=== PATIENT | female | born 1970 | race Caucasian/White ===

== ENCOUNTER 2016-06-14 02:08 | Inpatient (IN) | payer OTHER ==
[2016-06-14] MEDS ORDERED: Naloxone* 0.4 MG/ML 1 ML VIAL ONE (02:27)
[2016-06-14] MEDS ORDERED: Succinylcholine* 20 MG/ML 10 ML VIAL ONE (02:46)
[2016-06-14 06:03] LABS: Anion Gap 14 mmol/L (2-11); Blood Urea Nitrogen 17 mg/dL (6-24); CO2 Carbon Dioxide 22 mmol/L (22-32); Chloride 103 mmol/L (101-111); Glucose 101 mg/dL (70-100); Potassium 3.5 mmol/L (3.5-5.0); Sodium 139 mmol/L (133-145)
[2016-06-14 06:04] LABS: ALT 16 U/L (7-52); AST 23 U/L (13-39); Albumin 4.4 g/dL (3.2-5.2); Alkaline Phosphatase 73 U/L (34-104); BUN/Creatinine Ratio 17.3 (8-20); Calcium 9.2 mg/dL (8.6-10.3); EGFR African American 78.6 (>60); EGFR Non-African American 61.1 (>60); Globulin 3.7 g/dL (2-4); Total Protein 8.1 g/dL (6.4-8.9)
[2016-06-14 06:05] LABS: Acetaminophen < 15 mcg/mL; Alcohol 108 mg/dL (<10); Salicylate < 2.50 mg/dL (<30)
[2016-06-14 06:32] LABS: Urine Bacteria Absent (Absent); Urine Bilirubin Negative (Negative); Urine Glucose Negative (Negative); Urine Nitrite Negative (Negative)
[2016-06-14] MEDS ORDERED: NS 0.9% 1000 ML* 1,000 ML IV ONE ×2 (06:41→07:48)
[2016-06-14 06:42] LABS: Hematocrit 43 % (35-47); Hemoglobin 14.6 g/dl (12.0-16.0); Mean Corpuscular HGB Conc 34 g/dl (31-36); Mean Corpuscular Hemoglobin 29 pg (27-31); Mean Corpuscular Volume 86 fL (80-97); Mean Platelet Volume 8 um3 (7.4-10.4); Red Blood Count 5.03 10^6/ul (4.0-5.4); Red Cell Distribution Width 13 % (10.5-15); White Blood Count 13.4 10^3/ul (3.5-10.8)
[2016-06-14 06:46] LABS: Benzodiazepine Urine Screen None Detected (None Detect)
[2016-06-14] MEDS ORDERED: Acetaminophen TAB* 325 MG PO PRN (08:12)
[2016-06-14] MEDS ORDERED: Ondansetron INJ* 2 MG/ML VIAL IV PRN (08:12)
--- NOTE | 2016-06-14 08:17 | RAD ---
Indication: Overdose, unresponsive. Single frontal view of the chest performed at 0315 hours was reviewed. No prior study is available for comparison. No mediastinal shift is noted. Heart is of normal size and configuration. Lung graves appear clear. IMPRESSION: NO ACTIVE CARDIOPULMONARY DISEASE IS NOTED.
--- NOTE | 2016-06-14 08:25 | RAD ---
Indication: Overdose, confusion. CT of the brain was performed without IV contrast. Ventricular structures are midline. No midline shift is noted. The extra-axial spaces are unremarkable. There is no evidence of mass or hemorrhage. No other high or low density lesions are identified. Mastoid air cells and paranasal sinuses are otherwise unremarkable. IMPRESSION: No intracranial mass or hemorrhage is noted.
[2016-06-14] MEDS: Enoxaparin(*) 40 MG/0.4 ML SYR SUBCUT SCH (10:40)
[2016-06-14] MEDS: NS 0.9% 1000 ML* 1,000 ML IV SCH ×2 (10:40→20:00)
[2016-06-14] MEDS: DULoxetine DR CAP* 30 MG CAP.DR PO SCH (10:40)
--- NOTE | 2016-06-14 14:33 | HP ---
HISTORY AND PHYSICAL: DATE OF ADMISSION: 06/14/16 PRIMARY CARE PHYSICIAN: The patient's PCP is in [place]. CHIEF COMPLAINT: Overdose. HISTORY OF PRESENT ILLNESS: Ms. Jfefrey is a 46-year-old female with past medical history of depression and shoulder pain, who presents to the hospital after being found down from an overdose. 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 She is staying at the [facility]. She states that last night she went out to dinner and drinks with her colleagues. She may have had 2 or 3 drinks. She states she came back home and said she felt very overwhelmed and that there is "no one ever there." The patient reportedly called her sister and indicated that this may be the last time they talk. She subsequently took multiple pills of Flexeril and Benadryl, she assumes may be 10 of each. The Flexeril prescription had a total of 30 tablets when it was prescribed. The patient's sister called the police and they arrived at the hotel, found her in her room unresponsive. She was tachycardic, breathing rapidly but maintaining saturations. She was brought to the hospital. Due to her altered mental status , the patient was intubated. She then became more awake and combative and was subsequently extubated. When I spoke to the patient now, she has no complaints other than feeling tired. She is frustrated with what she did and is worried about losing her job and "ruining her life." She denies any chest pain, shortness of breath. She states she has never had a suicide attempt in the past. She states she saw psychiatrist few years ago and currently her PCP prescribes her antidepressants. PAST MEDICAL HISTORY: Depression, shoulder pain. PAST SURGICAL HISTORY: Tonsillectomy, left knee meniscus surgery, right ACL repair. HOME MEDICATIONS: 1. Sumatriptan 100 mg by mouth as needed for migraines. 2. Sertraline 25 mg taken daily, only 10 days a month. 3. Duloxetine 30 mg by mouth daily. 4. Flexeril 10 mg by mouth as needed for shoulder pain. ALLERGIES: The patient reports no known drug allergies. FAMILY HISTORY: Significant for her mother with alcohol abuse, kidney disease, liver disease, COPD. Father with CAD. Sister is relatively healthy. SOCIAL HISTORY: The patient denies any history of tobacco abuse. She states she rarely drinks, will occasionally drink when she is out with colleagues usually up to 2 to 3 drinks. Denies any illicit drug use. REVIEW OF SYSTEMS: A 12-point review of systems was negative except for that noted in the HPI. PHYSICAL EXAMINATION GENERAL: The patient is a middle-aged female, appears to be in mild emotional distress. VITAL SIGNS: On admission, temperature 98.4, heart rate of 107, respiratory rate of 13, O2 saturation 100% on room air, blood pressure 158/108. HEENT: Pupils are equal, round, and reactive to light and accommodation. Some mild pupil dilatation. Anicteric sclerae. Moist mucous membranes. LUNGS: Clear to auscultation bilaterally. No wheezes, rales, or rhonchi. CARDIOVASCULAR: Regular rate and rhythm. S1 and S2 present. No murmurs, gallops, or rubs. ABDOMEN: Obese, soft, nontender, nondistended. Bowel sounds positive. EXTREMITIES: No cyanosis, clubbing, or edema. NEUROLOGIC: The patient is alert and oriented x3. No focal neurological deficits. DIAGNOSTIC STUDIES/LAB DATA: White blood cell count of 13, hematocrit of 43, platelets of 322. Sodium of 139, potassium 3.5, chloride of 103, carbon dioxide 22, BUN of 17, creatinine 0.98, glucose of 101. INR of 0.88. LFTs within normal limits. UA benign for infection. U-tox is negative. Alcohol is 108. EKG shows sinus tachycardia. CT of the brain shows no intracranial mass or hemorrhage. Chest x-ray shows no active cardiopulmonary disease. ASSESSMENT AND PLAN: Attempted overdose with Flexeril, Benadryl combined with alcohol in a 46-year-old female with past medical history of depression and shoulder pain. 1. Overdose. The patient is currently awake and oriented. She regrets her decision to do this. She is still fairly tachycardic. As computers were down overnight, it is unclear how much fluid she got. She has had at least 1 L. We will order another liter of bolus now and continue at 125 cc an hour. We will hold Flexeril for now. Spoken to Dr. Ramirez, I feel she will likely be cleared for the psych floors later today who will come and evaluate. We will continue with one-to- one on the floor for now. Tachycardia is likely result of the Benadryl overdose. Should hopefully resolve later today. 2. Depression. We will continue the patient's home duloxetine for now, holding sertraline. 3. Shoulder pain. I will write the patient for some Tylenol. 4. DVT prophylaxis. Lovenox subcu. 5. Code status. The patient is a full code. TIME SPENT: Total time spent on this admission 50 minutes, with over half that time spent [id number] with the patient in counselling and coordinating care. [id number]/CPS #: [id number] MTDD
[2016-06-15] MEDS: NS 0.9% 1000 ML* 1,000 ML IV SCH ×2 (03:17→12:13)
[2016-06-15 05:42] LABS: Hematocrit 33 % (35-47); Hemoglobin 11.4 g/dl (12.0-16.0); Mean Corpuscular HGB Conc 35 g/dl (31-36); Mean Corpuscular Hemoglobin 29 pg (27-31); Mean Corpuscular Volume 85 fL (80-97); Mean Platelet Volume 8 um3 (7.4-10.4); Red Cell Distribution Width 13 % (10.5-15); White Blood Count 9.1 10^3/ul (3.5-10.8)
[2016-06-15] MEDS: DULoxetine DR CAP* 30 MG CAP.DR PO SCH (08:25)
[2016-06-15] MEDS: Enoxaparin(*) 40 MG/0.4 ML SYR SUBCUT SCH (08:25)
--- NOTE | 2016-06-15 12:56 | PN ---
Subjective Date of Service: 06/15/16 Interval History: Ms. Jeffrey reports feeling better this morning and denies any fever/chills, CP, SOB, abd pain, n/v, palpitations. She reports that she is urinating regularly. She feels as if her "mood is better" and she is happy to have visitors. She is requesting to go home; she does understand that due to her overdose, she will require psychiatric evaluation prior to discharge and that there is a possibility of admission to mental health. She feels as if she will go home with her family. 1:1 observation continues, no other nursing concerns. Family History: Unchanged from Admission Social History: Unchanged from Admission Past Medical History: Unchanged from Admission Objective Active Medications: Acetaminophen (Tylenol Tab*) 650 mg PO Q4H PRN PRN Reason: PAIN Duloxetine HCl (Cymbalta Cap*) 30 mg PO DAILY [facility] Last Admin: 06/15/16 08:25 Dose: 30 mg Enoxaparin Sodium (Lovenox(*)) 40 mg SUBCUT Q24H [facility] Last Admin: 06/15/16 08:25 Dose: 40 mg Sodium Chloride (Ns 0.9% 1000 Ml*) 1,000 mls @ 125 mls/hr IV PER RATE [facility] Last Admin: 06/15/16 12:13 Dose: 125 mls/hr Ondansetron HCl (Zofran Inj*) 4 mg IV Q4H PRN PRN Reason: NAUSEA/VOMITING Vital Signs 06/14/16 06/14/16 06/15/16 16:25 20:45 00:18 Temperature 98.7 F 98.9 F Pulse Rate 112 104 108 Respiratory 16 22 16 Rate Blood Pressure 129/82 133/73 122/61 (mmHg) O2 Sat by Pulse 97 96 96 Oximetry 06/15/16 06/15/16 06/15/16 04:27 07:23 11:41 Temperature 98.8 F 99.2 F 98.6 F Pulse Rate 102 101 104 Respiratory 16 20 20 Rate Blood Pressure 121/77 124/79 124/71 (mmHg) O2 Sat by Pulse 97 97 96 Oximetry Oxygen Devices in Use Now: None Appearance: Female patient, lying in bed, in NAD Eyes: PERRLA Ears/Nose/Mouth/Throat: Clear Oropharnyx, Mucous Membranes Moist Respiratory: Symmetrical Chest Expansion and Respiratory Effort, Clear to Auscultation Cardiovascular: NL Sounds; No Murmurs; No JVD, RRR - apical 100 Abdominal: NL Sounds; No Tenderness; No Distention Extremities: No Edema, No Clubbing, Cyanosis Skin: No Rash or Ulcers, No Nodules or Sclerosis Neurological: Alert and Oriented x 3, NL Muscle Strength and Tone Lines/Tubes/Other Access: Clean, Dry and Intact Peripheral IV Nutrition: Taking PO's Result Diagrams: 06/15/16 05:14 06/14/16 02:41 Assess/Plan/Problems-Billing Assessment: Ms. Jeffrey is a 46 year old female with a PMH of depression who presented to the ED after an intentional overdose and apparent suicide attempt. - Patient Problems (1) Overdose Code(s): T50.901A - POISONING BY UNSP DRUG/MEDS/BIOL SUBST, ACCIDENTAL, INIT Comment: Patient made suicide attempt by combining ETOH with cyclobenzaprine and Benadryl. Patient previously tachycardic, now improved. VSS. Anticholinergic side effects resolved, Poison Control has signed off. Psych eval pending. (2) Depression Code(s): F32.9 - MAJOR DEPRESSIVE DISORDER, SINGLE EPISODE, UNSPECIFIED Comment: Continue duloxetine. Sertraline currently on hold. Psych eval pending. (3) Shoulder pain Code(s): M25.519 - PAIN IN UNSPECIFIED SHOULDER Comment: Appears to be intermittent and chronic in nature Continue prn acetaminophen (4) DVT prophylaxis Code(s): [id number] - Comment: SQ enoxaparin Status and Disposition: OBV admit. Psychiatric evaluation pending in order to determine disposition. Anticipate patient may be admitted to [facility].
--- NOTE | 2016-06-15 18:50 | PN ---
Hospitalist Progress Note Psychiatry team intending to admit patient. Patient notified and understands the plan and agrees to cooperate and voluntarily admit self to [facility] at this time. Awaiting bed availability. Continue 1:1 on . Patient's family is arriving and would like to take patient home to [place] as soon as possible to see her home psychiatrist; she will be escorted by her spouse, who is arriving sometime tonight or tomorrow.
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
[2016-06-16] MEDS: Enoxaparin(*) 40 MG/0.4 ML SYR SUBCUT SCH (08:10)
[2016-06-16] MEDS: DULoxetine DR CAP* 30 MG CAP.DR PO SCH (08:10)
--- NOTE | 2016-06-16 16:46 | PN ---
Subjective Date of Service: 06/16/16 Interval History: Veronique is in the room with her stepmother and . She endorses no complaints and has no acute concerns, other than "wanting to get out of here and go back to [place]." She denies fever/chills, CP, palpitations, n/v. She reports a good appetite. She is hopeful to talk to someone from mental health today. Family History: Unchanged from Admission Social History: Unchanged from Admission Past Medical History: Unchanged from Admission Objective Active Medications: Acetaminophen (Tylenol Tab*) 650 mg PO Q4H PRN PRN Reason: PAIN Duloxetine HCl (Cymbalta Cap*) 30 mg PO DAILY [facility] Last Admin: 06/16/16 08:10 Dose: 30 mg Enoxaparin Sodium (Lovenox(*)) 40 mg SUBCUT Q24H [facility] Last Admin: 06/16/16 08:10 Dose: 40 mg Sodium Chloride (Ns 0.9% 1000 Ml*) 1,000 mls @ 125 mls/hr IV PER RATE [facility] Last Admin: 06/15/16 12:13 Dose: 125 mls/hr Ondansetron HCl (Zofran Inj*) 4 mg IV Q4H PRN PRN Reason: NAUSEA/VOMITING Vital Signs 06/15/16 06/16/16 06/16/16 23:57 04:25 08:22 Temperature 98.5 F 98.1 F 98.6 F Pulse Rate 100 91 88 Respiratory 16 16 16 Rate Blood Pressure 131/77 117/76 109/80 (mmHg) O2 Sat by Pulse 95 94 94 Oximetry 06/16/16 11:19 Temperature 98.6 F Pulse Rate 89 Respiratory 16 Rate Blood Pressure 123/79 (mmHg) O2 Sat by Pulse 97 Oximetry Oxygen Devices in Use Now: None Appearance: Pleasant, well-appearing female patient, sitting in room, in NAD Eyes: PERRLA Ears/Nose/Mouth/Throat: Clear Oropharnyx, Mucous Membranes Moist Neck: NL Appearance and Movements; NL JVP Respiratory: Symmetrical Chest Expansion and Respiratory Effort, Clear to Auscultation Cardiovascular: NL Sounds; No Murmurs; No JVD, RRR Abdominal: NL Sounds; No Tenderness; No Distention Extremities: No Edema Skin: No Rash or Ulcers Neurological: Alert and Oriented x 3 Nutrition: Taking PO's Result Diagrams: 06/15/16 05:14 06/14/16 02:41 Assess/Plan/Problems-Billing Assessment: Ms. Jeffrey is a 46 year old female with a PMH of depression who presented to the ED after an intentional overdose and apparent suicide attempt. - Patient Problems (1) Overdose Code(s): T50.901A - POISONING BY UNSP DRUG/MEDS/BIOL SUBST, ACCIDENTAL, INIT Comment: Plan for inpatient admission, per psych (please see psychiatric consultation). Patient made suicide attempt by combining ETOH with cyclobenzaprine and Benadryl. She is now medically cleared and awaiting admission to inpatient unit. (2) Depression Code(s): F32.9 - MAJOR DEPRESSIVE DISORDER, SINGLE EPISODE, UNSPECIFIED Comment: Continue duloxetine. Restart sertraline tomorrow. (3) Shoulder pain Code(s): M25.519 - PAIN IN UNSPECIFIED SHOULDER Comment: Appears to be intermittent and chronic in nature Continue prn acetaminophen (4) DVT prophylaxis Code(s): [id number] - Comment: SQ enoxaparin Status and Disposition: OBV to inpatient admission. Per psychiatric consultation, patient will be an involuntary admission for suicide attempt. Mental health unit to coordinate this. Patient is medically cleared but requires inpatient psychiatric admission , but no beds are yet available.
[2016-06-17] MEDS ORDERED: Sertraline* 25 MG TAB PO SCH (09:00)
[2016-06-17] MEDS: Enoxaparin(*) 40 MG/0.4 ML SYR SUBCUT SCH (10:02)
[2016-06-17] MEDS: DULoxetine DR CAP* 30 MG CAP.DR PO SCH (10:04)
--- NOTE | 2016-06-17 14:14 | PN ---
Subjective Date of Service: 06/17/16 Interval History: Patient denies any acute concerns, including CP, SOB, abd pain, n/v. She feels "better about life" and is receptive to inpatient admission so "I can get better." Family History: Unchanged from Admission Social History: Unchanged from Admission Past Medical History: Unchanged from Admission Objective Active Medications: Acetaminophen (Tylenol Tab*) 650 mg PO Q4H PRN PRN Reason: PAIN Duloxetine HCl (Cymbalta Cap*) 30 mg PO DAILY [facility] Last Admin: 06/17/16 10:04 Dose: 30 mg Enoxaparin Sodium (Lovenox(*)) 40 mg SUBCUT Q24H [facility] Last Admin: 06/17/16 10:02 Dose: 40 mg Sodium Chloride (Ns 0.9% 1000 Ml*) 1,000 mls @ 125 mls/hr IV PER RATE [facility] Last Admin: 06/15/16 12:13 Dose: 125 mls/hr Ondansetron HCl (Zofran Inj*) 4 mg IV Q4H PRN PRN Reason: NAUSEA/VOMITING Sertraline HCl (Zoloft*) 25 mg PO DAILY [facility] Last Admin: 06/17/16 10:03 Dose: 25 mg Vital Signs 06/16/16 06/17/16 06/17/16 20:00 07:22 07:36 Temperature 98.0 F Pulse Rate 86 Respiratory 16 16 16 Rate Blood Pressure 126/83 (mmHg) O2 Sat by Pulse 94 Oximetry Oxygen Devices in Use Now: None Appearance: Pleasant female patient, sitting up in bed, NAD Eyes: PERRLA Respiratory: Symmetrical Chest Expansion and Respiratory Effort, Clear to Auscultation Cardiovascular: NL Sounds; No Murmurs; No JVD, RRR Abdominal: NL Sounds; No Tenderness; No Distention Extremities: No Edema Skin: No Rash or Ulcers, - - skin tear/abrasion to mid chest in between breasts Neurological: Alert and Oriented x 3 Nutrition: Taking PO's Result Diagrams: 06/15/16 05:14 06/14/16 02:41 Assess/Plan/Problems-Billing Assessment: Ms. Jeffrey is a 46 year old female with a PMH of depression who presented to the ED after an intentional overdose and apparent suicide attempt. - Patient Problems (1) Overdose Code(s): T50.901A - POISONING BY UNSP DRUG/MEDS/BIOL SUBST, ACCIDENTAL, INIT Comment: Plan for inpatient admission, per psych (please see psychiatric consultation). Patient made suicide attempt by combining ETOH with cyclobenzaprine and Benadryl. She is now medically cleared and awaiting admission to inpatient unit. (2) Depression Code(s): F32.9 - MAJOR DEPRESSIVE DISORDER, SINGLE EPISODE, UNSPECIFIED Comment: Continue duloxetine and sertraline. (3) Shoulder pain Code(s): M25.519 - PAIN IN UNSPECIFIED SHOULDER Comment: Appears to be intermittent and chronic in nature Continue prn acetaminophen (4) DVT prophylaxis Code(s): [id number] - Comment: SQ enoxaparin Status and Disposition: OBV to inpatient admission. Per psychiatric consultation, patient will be an involuntary admission for suicide attempt. d/c to [facility]
[2016-06-17] MEDS ORDERED: Neomycin/Polym/Bacit TOP OINT* 15 GM TOPICAL SCH (15:00)
[2016-06-17 17:57] VITALS: BP 125/87
--- NOTE | 2016-06-19 00:56 | DS ---
DISCHARGE SUMMARY: DATE OF ADMISSION: 06/14/16 DATE OF DISCHARGE: 06/17/16 ATTENDING PHYSICIAN: Kary Traylor MD *(as dictated by Brayan Smith NP). PRIMARY CARE PHYSICIAN: The patient's PCP is in [place]. CONSULTING PHYSICIAN: Yeison Hester MD, Psychiatry. PRIMARY DISCHARGE DIAGNOSES: 1. Overdose. 2. Suicide attempt. SECONDARY DISCHARGE DIAGNOSES: 1. Depression. 2. Shoulder pain. MEDICATIONS AT DISCHARGE: 1. Imitrex 100 mg daily p.r.n. 2. Sertraline 25 mg daily. 3. Duloxetine [address] 30 mg daily. 4. Acetaminophen 650 mg q.4 hours p.r.n. 6. Neosporin 1 application topical t.i.d. MEDICATIONS DISCONTINUED AT DISCHARGE: Cyclobenzaprine 10 mg q.6 hours p.r.n. HOSPITAL COURSE OF STAY: For full details, please refer to the H and P provided by Dr. Gaines on 06/14/16. In summary, Ms. Jeffrey is a 46-year-old female who lives in [place], but was here in [place] for work and was staying in a local hotel. The patient went out for drinks the evening prior to her admission and then came back to the hotel and felt overwhelmed. She did call her sister and stated that this might be the last time they ever talk. She subsequently then took multiple pills of Flexeril and Benadryl, she assumes approximately 10 of each medication. The patient's sister called the police and they arrived at the hotel and found her in her room unresponsive. The patient was tachycardic and breathing rapidly, but was able to maintain her saturations. She was intubated upon arrival to the hospital. She then became more awake and combative and was subsequently extubated. Poison Control was called as well. She did express frustration with what she did and she did agree to admission to the medicine floor. The following day, the patient was more hemodynamically stable. There had been issues with her tachycardia following her anticholinergic overdose, but this has resolved. The patient reports that she is urinating and is not having urinary retention issues. She has been very cooperative with care and with the nursing staff. She has been seen in a one-to-one observation for attempted suicide via overdose. I did talk with Mental Health on 06/15/16 and notified them that the patient has been medically cleared. The patient was seen in consultation by a psychiatric nurse practitioner, Yeison Linton. The case was reviewed with Dr. Hester and it was determined the patient should be admitted secondary to a suicide attempt for further evaluation and stabilization of these symptoms. The patient stayed on the medical floor until a bed was available in the mental health unit and again has demonstrated excellent cooperation and compliance with the treatment team. A 9.39 was completed by our medical physician. The patient's stepmother and have traveled from [place] to be with the patient, and are currently staying in [place]. They will be available subsequently throughout most of her admission on the psychiatric unit so that they can take her back home to [place] when she is discharged. This has been communicated to the mental health unit. I have prescribed Neosporin for the patient's skin tear and abrasion to her chest which was sustained from sternal rubbing following her overdose. CONCERNS AT DISCHARGE: Ms. Jeffrey will be discharged to [facility] unit on 06/17/16 in stable condition. DIET: Regular diet. ACTIVITY: As tolerated. CONDITION: Stable. [place] [facility]. TIME SPENT: Time spent on this discharge was approximately 65 minutes. Again, this is only a brief summary of the patient's hospital course of stay. For full details, please refer to the full medical record. If you have any further questions or need further assistance, please feel free to contact me at [phone]. BRAYAN SMITH NP CC: Yeison Hester MD, Mental Health [id number]/[facility] #: [id number] [facility]
== END 2016-06-17 17:50 | DRG 812 ==
LOC: ED 02:08 → MEDTELE 08:08 → OBSVTOIN 06-15 18:00
PROVIDERS: ADMIT Hospitalist; ATTEND Internal Medicine
PROC: 0BH17EZ Insertion of Endotracheal Airway into Trachea, Via Natural or Artificial Opening (ICD-10-PCS; principal; 2016-06-15)
PROC: 5A1935Z Respiratory Ventilation, Less than 24 Consecutive Hours (ICD-10-PCS; 2016-06-15)
DX: T48.1X2A Poisoning by skeletal muscle relaxants [neuromuscular blocking agents], intentional self-harm, initial encounter (principal); F32.89 Other specified depressive episodes; F32.9 Major depressive disorder, single episode, unspecified; T45.0X2A Poisoning by antiallergic and antiemetic drugs, intentional self-harm, initial encounter; R00.0 Tachycardia, unspecified; M25.519 Pain in unspecified shoulder; G89.29 Other chronic pain; G43.909 Migraine, unspecified, not intractable, without status migrainosus; Z81.8 Family history of other mental and behavioral disorders; S20.319A Abrasion of unspecified front wall of thorax, initial encounter; X58.XXXA Exposure to other specified factors, initial encounter; Y92.239 Unspecified place in hospital as the place of occurrence of the external cause; Y92.59 Other trade areas as the place of occurrence of the external cause; Z83.79 Family history of other diseases of the digestive system; Z81.1 Family history of alcohol abuse and dependence; Z84.1 Family history of disorders of kidney and ureter; Z82.5 Family history of asthma and other chronic lower respiratory diseases; Z82.49 Family history of ischemic heart disease and other diseases of the circulatory system
CPT/HCPCS: 36415; 70450; 71010; 80053; 80307; 80320; 80329; 81003; 81015; 84702; 85025; 85610; 85730; 93005; A9270-GY; G0378; G0480; J0330; J1650; J2310

== ENCOUNTER 2016-06-17 14:51 | Inpatient (IN) | payer OTHER ==
[2016-06-17] MEDS ORDERED: Al Hydrox/Mg Hydrox/Simet LIQ* 30 ML UDC PO PRN (16:57)
[2016-06-17] MEDS ORDERED: Acetaminophen TAB* 325 MG PO PRN (16:57)
[2016-06-17] MEDS ORDERED: Nicotine Inhaler* 10 MG AMP INH PRN (16:57)
[2016-06-17] MEDS ORDERED: SUMAtriptan TAB* 100 MG PO PRN (17:05)
[2016-06-17] MEDS ORDERED: Mouth Piece, Nicotine* 1 EACH CARTRIDGE INH ONE (19:00)
[2016-06-17] MEDS ORDERED: Zolpidem TAB* 10 MG PO PRN (21:00)
[2016-06-18] MEDS ORDERED: DULoxetine DR CAP* 30 MG CAP.DR PO SCH (09:00)
[2016-06-18] MEDS ORDERED: Vitamin THERAPEUTIC TAB PO SCH (09:00)
[2016-06-18] MEDS ORDERED: Sertraline* 25 MG TAB PO SCH (09:00)
[2016-06-18 09:41] VITALS: BP 123/85
[2016-06-18] MEDS: Neomycin/Polym/Bacit TOP OINT* 15 GM TOPICAL SCH ×3 (09:41→13:23)
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
--- NOTE | 2016-06-19 02:38 | DS ---
DISCHARGE SUMMARY: DATE OF ADMISSION: 06/17/16 DATE OF DISCHARGE: 06/18/16 DISCHARGE DIAGNOSES: [place] I: Adjustment disorder with depression. [place] II: Deferred. [place] III: Migraine headache. [place] IV: Severe occupational stressors. [place] V: Was 55 at the time of admission and 60 at the time of discharge. MENTAL STATUS EXAM: At the time of discharge, the patient is a middle-aged white female with eye glasses who is slightly overweight, who is clean, well groomed, calm, cooperative, makes excellent eye contact. Her speech has normal rate, tone, and volume. Mood is somewhat anxious with a full affect. Thought process is linear and goal-directed. Thought content is significant for her desire to be discharged back home to [place]. She is denying suicidal or homicidal ideations. She denies auditory or visual hallucinations. Insight and judgment are fair given her willingness to follow up with her outpatient psychiatrist. Cognitively, she is awake and alert with what would appear to be an average intellect. CONDITION AT THE TIME OF DISCHARGE: Stable. The patient is calm, cooperative, friendly. She is extremely remorseful for her suicide attempt, indicates that she has never done anything like this. She feels bad for having hurt her family. She feels very supported by her family who have rushed to her aid and the amount of kindness that they have demonstrated is very moving to her. She states that her nieces would be extremely distraught if she were to commit suicide and she states that she has several reasons that she wants to continue living, including her love of her family. The acute stressor leading to this hospital situation is largely occupational. She has already informed her employers of her hospitalization and will be discussing ways of reducing the occupational burdens. In addition, she has been granted some time off from her responsibilities therein. The patient is very much eager to follow up with outpatient mental health services and we have had contact with the office of Dr. Juan Thompson and she will be following up with him in the [place] area. We have spoken with her , Pawel, who is very much eager to take her home and does not feel that she would be a danger to herself. DISCHARGE INSTRUCTIONS: To the patient are as follows: A. Medications: She is taking Lexapro 10 mg daily, Imitrex 100 mg as needed for migraine headache, duloxetine 30 mg daily. B. Diet: Regular. C. Activities: As tolerated. There are no studies pending at the time of discharge. The patient is a nonsmoker. D. Follow-up care: The patient will follow up with psychiatrist, Dr. Juan Thompson, within 1 week of discharge. His office is in [place], [place]. HOSPITAL COURSE: Part A: The patient is a 46-year-old middle-aged white female who is transferred from the medical service following medical stabilization of an intentional overdose on Flexeril and Benadryl while staying in a hotel in [place]. The patient was in [place] on business. She states she has been traveling extensively for work for the past 5 weeks and has felt overburdened and undersupported because they are short-staffed and she is the only person who has certain skills. The patient identifies as a people pleaser and indicates she has a hard time saying no to her employers. At any rate, she was out drinking with members of her team after they had finished a particularly difficult job in [place] and she was ready to come back to [place] that next day, but she felt overwhelmed in her hotel room and can only vaguely recall overdosing on Benadryl and Flexeril. Upon awakening in the hospital, she immediately regretted what she had done. The patient denies neurovegetative symptoms of depression, but does indicate that she is going through perimenopause. 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 Her family was seen in the hospital room by our delivery consultant team and were very supportive of her. Part B: Psychiatric treatment rendered: The patient was admitted to the adult behavioral health unit where she was placed on q.30-minute checks for her own safety. We resumed her treatment with Cymbalta, Lexapro, and Imitrex. She attended groups appropriately, was active on the milieu setting, and we were able to contact her who was very much in agreement with the discharge plan. Both the patient and her indicated that they felt safe with her going home and resuming care with her prior psychiatrist, who is in private practice in [place]. The patient is indicating that she will never attempt to do anything like this, knowing now how much she has hurt her family. She is quite embarrassed and contrite about the suicide attempt. She has spoken with her employer about reducing her burdens at work, which was the haro stressor leading to her suicidal overdose. At this time, we feel safe to discharge her back to the community. [id number]/[facility] #: [id number] [place]
== END 2016-06-18 12:10 | disposition home or self-care (01) | DRG 754 ==
LOC: BSU 17:50
PROVIDERS: ADMIT Psychiatry & Neurology Psychiatry; ATTEND Psychiatry & Neurology Psychiatry
DX: F43.21 Adjustment disorder with depressed mood (principal); F32.9 Major depressive disorder, single episode, unspecified; G43.909 Migraine, unspecified, not intractable, without status migrainosus; E66.3 Overweight; Z62.819 Personal history of unspecified abuse in childhood; F32.89 Other specified depressive episodes; F41.9 Anxiety disorder, unspecified; Z56.6 Other physical and mental strain related to work; Z78.0 Asymptomatic menopausal state; Z81.1 Family history of alcohol abuse and dependence; Z68.36 Body mass index [BMI] 36.0-36.9, adult; Z81.8 Family history of other mental and behavioral disorders
CPT/HCPCS: 99238; A9270-GY